=== PATIENT | female | born 1940 | race Caucasian/White ===

== ENCOUNTER 2017-09-15 06:35 | Inpatient (IN) | payer MEDICARE ==
[~2017-09-15] VITALS: Ht 162.6 cm; Wt 163.0 kg
[~2017-09-15 06:35] MED LIST: ALBU8.5H5 INH; ASCO100019 PO; ATEN50TA41 PO; BIOT25005 PO; CAPE500T24 PO; CHOL10002 PO; DOCU-180 PO; FURO40TA6 PO; LYSI500T PO; MONT10TA6 PO; MULT-224 PO; OMEG1CAP49 PO; POTA20TA91 PO; VIT1CAPS6 PO; Vitamin B6 PO; WARF5TAB7 PO; [UNRECOGNIZED DRUG - OTHER] PO
[2017-09-15] MEDS ORDERED: MORPHINE SULFATE 4 MG/ML, 1ML IVPush PRN (08:00)
[2017-09-15] MEDS ORDERED: ONDANSETRON 2MG/ML, 2ML IVPush ONE (08:00)
[2017-09-15] MEDS ORDERED: FAMOTIDINE 20 MG/2 ML IVPush ONE (08:00)
[2017-09-15] MEDS ORDERED: SODIUM CHLORIDE 0.9% 1,000ML IVBOLUS ONE (08:00)
[2017-09-15] MEDS ORDERED: SODIUM CHLORIDE FLUSH 10ML SYR IVF ONE (08:00)
[2017-09-15] MEDS ORDERED: FAMOTIDINE 20 MG/2 ML ONE (08:01)
[2017-09-15] MEDS ORDERED: MORPHINE SULFATE 4 MG/ML, 1ML ONE (08:01)
[2017-09-15] MEDS ORDERED: ONDANSETRON 2MG/ML, 2ML ONE (08:01)
[2017-09-15 08:08] LABS: BASOPHILS % (AUTO) 0 % (0-1); EOSINOPHILS # (AUTO) 0.02 x10^3/uL (0-0.4); EOSINOPHILS % (AUTO) 0 % (1-7); LYMPHOCYTES % (AUTO) 10 % (22-44); MD NO; MEAN CORPUSCULAR HEMOGLOBIN 32.1 pg (27.0-34.8); MEAN CORPUSCULAR VOLUME 94.4 fL (80-100); MEAN PLATELET VOLUME 7.8 fL (7.4-10.4); MONOCYTES # (AUTO) 0.59 x10^3/uL (0.2-0.8); MONOCYTES % (AUTO) 6 % (2-9); NEUTROPHILS # (AUTO) 8.15 x10^3/uL (1.8-6.8); NEUTROPHILS % (AUTO) 84 % (42-75); PLATELET COUNT 236 x10^3/uL (130-400); RED BLOOD COUNT 4.29 x10^6/uL (3.82-5.3); RED CELL DISTRIBUTION WIDTH 14.1 % (9.6-15.2)
[2017-09-15 08:16] LABS: INTERNATIONAL NORMALIZED RATIO 2.09 (0.93-1.1); PROTHROMBIN TIME 21.4 Seconds (9.6-11.5)
[2017-09-15 08:18] LABS: ALANINE AMINOTRANSFERASE 26 U/L (12-78); ALBUMIN 3.3 g/dL (3.4-5.0); ANION GAP 7 mmol/L (5-15); CALCIUM 9.2 mg/dL (8.5-10.1); CHLORIDE 102 mmol/L (98-107); CREATININE 1.13 mg/dL (0.55-1.02)
[2017-09-15 08:22] LABS: ALKALINE PHOSPHATASE 53 U/L (45-117); BILIRUBIN,TOTAL 1.7 mg/dL (0.2-1.0); TOTAL PROTEIN 8.5 g/dL (6.4-8.2); TROPONIN I < 0.015 ng/mL (0.000-0.045)
[2017-09-15 09:31] LABS: MICROSCOPIC AUTO
[2017-09-15 09:32] LABS: CULTURE INDICATED? YES
[2017-09-15] MEDS ORDERED: OMNIPAQUE 350 MG/ML, 100ML BOTTLE ONE (10:29)
[2017-09-15] MEDS ORDERED: CEFOTETAN PMX 1GM/50ML 50 ML IV ONE (11:00)
[2017-09-15] MEDS ORDERED: FURO20TA3 PO (11:30)
[2017-09-15] MEDS ORDERED: METO100T5 PO (11:30)
[2017-09-15] MEDS ORDERED: WARF6TAB PO (11:30)
[2017-09-15] MEDS ORDERED: CEFOTETAN PMX 1GM/50ML 50 ML ONE (12:14)
[2017-09-15] MEDS ORDERED: ACETAMINOPHEN 325 MG TABLET PO PRN (13:00)
[2017-09-15] MEDS ORDERED: POLYETHYLENE GLYCOL 17 GM PACKET PO PRN (13:00)
[2017-09-15] MEDS ORDERED: DOCUSATE 100 MG CAPSULE PO PRN (13:00)
[2017-09-15] MEDS: SENNA/DOCUSATE TABLET PO SCH (13:00)
[2017-09-15] MEDS ORDERED: OXYcodone IR 5MG TABLET PO PRN (13:00)
[2017-09-15] MEDS ORDERED: ALBUTEROL SULFATE 2.5 MG/3 ML NPPB PRN ×2 (13:00→13:09)
[2017-09-15] MEDS: NS + 20MEQ KCL 1,000 ML IV SCH (20:55)
[2017-09-15] MEDS: CIPROFLOXACIN/PMX 400MG/200ML 200 ML IV SCH (20:56)
[2017-09-15 21:10] VITALS: BP 172/75
[2017-09-15] MEDS: morphine SULFATE 10 MG/ML, 1ML IVPush PRN (21:10)
[2017-09-15 22:30] VITALS: BP 140/75
[2017-09-15] MEDS: METRONIDAZOLE PMX 500MG/100ML 100 ML IV SCH (22:32)
[2017-09-16 02:11] VITALS: BP 161/78
[2017-09-16 05:19] LABS: BASOPHILS # (AUTO) 0.02 x10^3/uL (0-0.1); BASOPHILS % (AUTO) 0 % (0-1); EOSINOPHILS # (AUTO) 0.01 x10^3/uL (0-0.4); EOSINOPHILS % (AUTO) 0 % (1-7); LYMPHOCYTES # (AUTO) 0.88 x10^3/uL (1-3.4); LYMPHOCYTES % (AUTO) 6 % (22-44); MD NO; MEAN CORPUSCULAR HEMOGLOBIN 32.4 pg (27.0-34.8); MEAN CORPUSCULAR HGB CONC 33.6 g/dL (32.4-35.8); MEAN CORPUSCULAR VOLUME 96.3 fL (80-100); MEAN PLATELET VOLUME 8.1 fL (7.4-10.4); MONOCYTES % (AUTO) 10 % (2-9); NEUTROPHILS # (AUTO) 12.88 x10^3/uL (1.8-6.8); NEUTROPHILS % (AUTO) 84 % (42-75); PLATELET COUNT 203 x10^3/uL (130-400); RED BLOOD COUNT 4.21 x10^6/uL (3.82-5.3); RED CELL DISTRIBUTION WIDTH 14.3 % (9.6-15.2)
[2017-09-16 05:34] LABS: CHLORIDE 105 mmol/L (98-107)
[2017-09-16 05:46] LABS: ALANINE AMINOTRANSFERASE 27 U/L (12-78); ALBUMIN 2.7 g/dL (3.4-5.0); ALKALINE PHOSPHATASE 49 U/L (45-117); ANION GAP 7 mmol/L (5-15); BILIRUBIN,TOTAL 1.8 mg/dL (0.2-1.0); CALCIUM 8.6 mg/dL (8.5-10.1); CREATININE 1.02 mg/dL (0.55-1.02); TOTAL PROTEIN 7.1 g/dL (6.4-8.2)
[2017-09-16] MEDS: METRONIDAZOLE PMX 500MG/100ML 100 ML IV SCH ×2 (06:13→14:47)
[2017-09-16 07:48] VITALS: BP 153/74
[2017-09-16] MEDS: morphine SULFATE 10 MG/ML, 1ML IVPush PRN (09:58)
[2017-09-16] MEDS: METOPROLOL SUCCINATE 100 MG TAB.ER.24H PO SCH (09:59)
[2017-09-16] MEDS: POTASSIUM CHLORIDE 20 MEQ TAB.ER.PRT PO SCH (10:00)
[2017-09-16] MEDS: SENNA/DOCUSATE TABLET PO SCH (10:00)
[2017-09-16] MEDS: FUROSEMIDE 20 MG TABLET PO SCH (10:00)
[2017-09-16] MEDS: MULTIVITAMIN 1 TABLET PO SCH (10:00)
[2017-09-16] MEDS: NS + 20MEQ KCL 1,000 ML IV SCH (10:31)
[2017-09-16] MEDS: CIPROFLOXACIN/PMX 400MG/200ML 200 ML IV SCH ×2 (10:31→22:49)
[2017-09-16 11:52] LABS: INTERNATIONAL NORMALIZED RATIO 2.43 (0.93-1.1); PROTHROMBIN TIME 24.8 Seconds (9.6-11.5)
[2017-09-16] MEDS ORDERED: PHYTONADIONE 10 MG/ML, 1ML IM ONE (14:00)
[2017-09-16 14:04] VITALS: BP 151/72
[2017-09-16 15:20] LABS: CLOSTRIDIUM DIFFICILE ANTIGEN NEGATIVE; CLOSTRIDIUM DIFFICILE TOXIN NEGATIVE (Negative)
[2017-09-16 20:15] VITALS: BP 135/79
[2017-09-17] MEDS: METRONIDAZOLE PMX 500MG/100ML 100 ML IV SCH ×3 (00:07→15:52)
[2017-09-17 03:00] VITALS: BP 134/76
[2017-09-17 06:00] LABS: BASOPHILS # (AUTO) 0.01 x10^3/uL (0-0.1); BASOPHILS % (AUTO) 0 % (0-1); EOSINOPHILS # (AUTO) 0.03 x10^3/uL (0-0.4); EOSINOPHILS % (AUTO) 0 % (1-7); LYMPHOCYTES # (AUTO) 0.89 x10^3/uL (1-3.4); LYMPHOCYTES % (AUTO) 7 % (22-44); MD NO; MEAN CORPUSCULAR HEMOGLOBIN 32.2 pg (27.0-34.8); MEAN CORPUSCULAR HGB CONC 33.7 g/dL (32.4-35.8); MEAN CORPUSCULAR VOLUME 95.5 fL (80-100); MONOCYTES # (AUTO) 1.16 x10^3/uL (0.2-0.8); MONOCYTES % (AUTO) 9 % (2-9); NEUTROPHILS # (AUTO) 10.65 x10^3/uL (1.8-6.8); NEUTROPHILS % (AUTO) 84 % (42-75); PLATELET COUNT 213 x10^3/uL (130-400); RED BLOOD COUNT 4.03 x10^6/uL (3.82-5.3); RED CELL DISTRIBUTION WIDTH 13.9 % (9.6-15.2)
[2017-09-17 06:57] LABS: INTERNATIONAL NORMALIZED RATIO 1.57 (0.93-1.1); PROTHROMBIN TIME 16.2 Seconds (9.6-11.5)
[2017-09-17 07:55] VITALS: BP 134/78
[2017-09-17] MEDS: SENNA/DOCUSATE TABLET PO SCH (08:04)
[2017-09-17] MEDS: POTASSIUM CHLORIDE 20 MEQ TAB.ER.PRT PO SCH (08:10)
[2017-09-17] MEDS: MULTIVITAMIN 1 TABLET PO SCH (08:11)
[2017-09-17] MEDS: METOPROLOL SUCCINATE 100 MG TAB.ER.24H PO SCH (08:11)
[2017-09-17] MEDS: FUROSEMIDE 20 MG TABLET PO SCH (08:11)
[2017-09-17] MEDS ORDERED: PHYTONADIONE 10 MG/ML, 1ML IM ONE (08:30)
[2017-09-17] MEDS: CIPROFLOXACIN/PMX 400MG/200ML 200 ML IV SCH ×2 (09:35→21:50)
[2017-09-17 13:01] VITALS: BP 150/80
[2017-09-17] MEDS: NS + 20MEQ KCL 1,000 ML IV SCH (14:37)
[2017-09-17] MEDS: ONDANSETRON 2MG/ML, 2ML IVPush PRN (17:18)
[2017-09-17 19:45] VITALS: BP 128/85
[2017-09-17] MEDS: morphine SULFATE 10 MG/ML, 1ML IVPush PRN (22:40)
[2017-09-18] MEDS: METRONIDAZOLE PMX 500MG/100ML 100 ML IV SCH ×3 (00:06→16:56)
[2017-09-18 03:36] VITALS: BP 119/68
[2017-09-18] MEDS: NS + 20MEQ KCL 1,000 ML IV SCH (03:38)
[2017-09-18 05:20] LABS: CHLORIDE 109 mmol/L (98-107)
[2017-09-18 05:29] LABS: ALANINE AMINOTRANSFERASE 24 U/L (12-78); ALBUMIN 2.1 g/dL (3.4-5.0); ALKALINE PHOSPHATASE 57 U/L (45-117); ANION GAP 8 mmol/L (5-15); BILIRUBIN,TOTAL 1.1 mg/dL (0.2-1.0); CALCIUM 8.2 mg/dL (8.5-10.1); CREATININE 0.91 mg/dL (0.55-1.02); TOTAL PROTEIN 6.6 g/dL (6.4-8.2)
[2017-09-18 05:36] LABS: INTERNATIONAL NORMALIZED RATIO 1.14 (0.93-1.1); PROTHROMBIN TIME 11.8 Seconds (9.6-11.5)
[2017-09-18 05:50] LABS: BASOPHILS # (AUTO) 0.04 x10^3/uL (0-0.1); BASOPHILS % (AUTO) 0 % (0-1); EOSINOPHILS # (AUTO) 0.12 x10^3/uL (0-0.4); EOSINOPHILS % (AUTO) 1 % (1-7); LYMPHOCYTES % (AUTO) 7 % (22-44); MD NO; MEAN CORPUSCULAR HGB CONC 33.4 g/dL (32.4-35.8); MEAN CORPUSCULAR VOLUME 95.9 fL (80-100); MONOCYTES # (AUTO) 0.93 x10^3/uL (0.2-0.8); MONOCYTES % (AUTO) 8 % (2-9); NEUTROPHILS # (AUTO) 10.15 x10^3/uL (1.8-6.8); NEUTROPHILS % (AUTO) 84 % (42-75); PLATELET COUNT 267 x10^3/uL (130-400); RED BLOOD COUNT 4.29 x10^6/uL (3.82-5.3); RED CELL DISTRIBUTION WIDTH 14.4 % (9.6-15.2)
[2017-09-18 07:47] VITALS: BP 124/67
[2017-09-18] MEDS: ONDANSETRON 2MG/ML, 2ML IVPush PRN (08:28)
[2017-09-18] MEDS: morphine SULFATE 10 MG/ML, 1ML IVPush PRN ×2 (08:28→12:51)
[2017-09-18] MEDS: METOPROLOL SUCCINATE 100 MG TAB.ER.24H PO SCH (08:28)
[2017-09-18] MEDS: POTASSIUM CHLORIDE 20 MEQ TAB.ER.PRT PO SCH (08:33)
[2017-09-18] MEDS: MULTIVITAMIN 1 TABLET PO SCH (08:34)
[2017-09-18] MEDS: FUROSEMIDE 20 MG TABLET PO SCH (08:34)
[2017-09-18] MEDS: SENNA/DOCUSATE TABLET PO SCH (08:34)
[2017-09-18] MEDS: CIPROFLOXACIN/PMX 400MG/200ML 200 ML IV SCH (12:52)
[2017-09-18 13:24] VITALS: BP 125/62
[2017-09-18] MEDS ORDERED: FENTANYL PF 250 MCG/5ML ONE (18:29)
[2017-09-18] MEDS ORDERED: BUPIVACAINE/PF 0.5% ONE (18:32)
[2017-09-18] MEDS ORDERED: EPINEPHRINE 1 MG/ML, 1ML ONE (18:32)
[2017-09-18] MEDS ORDERED: ONDANSETRON 2MG/ML, 2ML ONE (18:51)
[2017-09-18] MEDS ORDERED: PROPOFOL 10 MG/ML, 20ML ONE (18:51)
[2017-09-18] MEDS ORDERED: ROCURONIUM 10 MG/ML,10ML ONE (18:51)
[2017-09-18] MEDS ORDERED: DEXAMETHASONE 4 MG/ML, 1ML ONE (18:51)
[2017-09-18] MEDS ORDERED: LIDOCAINE-MPF 2% ,5ML ONE (18:51)
[2017-09-18] MEDS ORDERED: BUPIVACAINE/PF-EPI 0.5% 1:200K IM ONE (19:07)
[2017-09-18] MEDS ORDERED: SUGAMMADEX 200 MG/2 ML IVPush ONE (19:32)
[2017-09-18] MEDS ORDERED: HYDROmorphone 2 MG/ML, 1ML ONE (19:59)
[2017-09-18] MEDS ORDERED: ACETAMINOPHEN 325 MG TABLET PO PRN (20:00)
[2017-09-18] MEDS ORDERED: MIDAZOLAM 1 MG/ML, 2ML IV PRN (20:00)
[2017-09-18] MEDS ORDERED: FENTANYL PF 100 MCG/2ML IV PRN (20:00)
[2017-09-18] MEDS ORDERED: ALBUTEROL SULFATE 2.5 MG/3 ML NPPB PRN (20:00)
[2017-09-18] MEDS ORDERED: OXYcodone 5 MG/5 ML ORAL.SOL UDC PO PRN (20:00)
[2017-09-18] MEDS ORDERED: OXYcodone 5 MG/5 ML ORAL.SOL UDC ONE (20:00)
[2017-09-18] MEDS ORDERED: PROMETHAZINE 25 MG/ML, 1ML IV PRN (20:00)
[2017-09-18] MEDS: HYDROmorphone 1 MG/ML, 1ML IV PRN ×3 (20:02→20:22)
[2017-09-18 21:00] VITALS: BP 141/65
[2017-09-19] MEDS ORDERED: ALBUTEROL SULFATE 2.5 MG/3 ML NPPB PRN
[2017-09-19] MEDS: METRONIDAZOLE PMX 500MG/100ML 100 ML IV SCH ×3 (00:04→17:00)
[2017-09-19 01:05] VITALS: BP 135/61
[2017-09-19] MEDS: CIPROFLOXACIN/PMX 400MG/200ML 200 ML IV SCH ×2 (01:07→13:21)
[2017-09-19 05:33] LABS: BASOPHILS # (AUTO) 0.01 x10^3/uL (0-0.1); BASOPHILS % (AUTO) 0 % (0-1); EOSINOPHILS # (AUTO) 0.01 x10^3/uL (0-0.4); EOSINOPHILS % (AUTO) 0 % (1-7); LYMPHOCYTES # (AUTO) 0.57 x10^3/uL (1-3.4); LYMPHOCYTES % (AUTO) 6 % (22-44); MD NO; MEAN CORPUSCULAR HEMOGLOBIN 32.2 pg (27.0-34.8); MEAN CORPUSCULAR HGB CONC 33.6 g/dL (32.4-35.8); MEAN CORPUSCULAR VOLUME 95.8 fL (80-100); MEAN PLATELET VOLUME 7.8 fL (7.4-10.4); MONOCYTES # (AUTO) 0.51 x10^3/uL (0.2-0.8); MONOCYTES % (AUTO) 6 % (2-9); NEUTROPHILS # (AUTO) 8.18 x10^3/uL (1.8-6.8); NEUTROPHILS % (AUTO) 88 % (42-75); PLATELET COUNT 277 x10^3/uL (130-400); RED BLOOD COUNT 3.94 x10^6/uL (3.82-5.3); RED CELL DISTRIBUTION WIDTH 14.3 % (9.6-15.2)
[2017-09-19 05:35] LABS: ANION GAP 7 mmol/L (5-15); CALCIUM 8.5 mg/dL (8.5-10.1); CHLORIDE 109 mmol/L (98-107)
[2017-09-19 05:38] LABS: ALANINE AMINOTRANSFERASE 42 U/L (12-78); ALKALINE PHOSPHATASE 93 U/L (45-117); BILIRUBIN,TOTAL 0.8 mg/dL (0.2-1.0); CREATININE 0.99 mg/dL (0.55-1.02); TOTAL PROTEIN 6.5 g/dL (6.4-8.2)
[2017-09-19 07:42] VITALS: BP 131/69
[2017-09-19] MEDS: SENNA/DOCUSATE TABLET PO SCH (09:00)
[2017-09-19] MEDS: POTASSIUM CHLORIDE 20 MEQ TAB.ER.PRT PO SCH (09:08)
[2017-09-19] MEDS: MULTIVITAMIN 1 TABLET PO SCH (09:09)
[2017-09-19] MEDS: METOPROLOL SUCCINATE 100 MG TAB.ER.24H PO SCH (09:09)
[2017-09-19] MEDS: FUROSEMIDE 20 MG TABLET PO SCH (09:09)
[2017-09-19 13:30] VITALS: BP 145/82
[2017-09-19] MEDS ORDERED: METR500T PO (14:30)
[2017-09-19] MEDS ORDERED: CIPR500T3 PO (14:30)
[2017-09-19] MEDS ORDERED: WARFARIN 3 MG TABLET PO-COUM SCH (18:00)
[2017-09-19 20:20] VITALS: BP 168/86
[2017-09-20] MEDS: METRONIDAZOLE PMX 500MG/100ML 100 ML IV SCH ×2 (00:17→08:25)
[2017-09-20 00:28] VITALS: BP 131/72
[2017-09-20] MEDS: CIPROFLOXACIN/PMX 400MG/200ML 200 ML IV SCH (01:36)
[2017-09-20 08:12] VITALS: BP 152/80
[2017-09-20] MEDS: FUROSEMIDE 20 MG TABLET PO SCH (08:24)
[2017-09-20] MEDS: POTASSIUM CHLORIDE 20 MEQ TAB.ER.PRT PO SCH (08:24)
[2017-09-20] MEDS: MULTIVITAMIN 1 TABLET PO SCH (08:24)
[2017-09-20] MEDS: METOPROLOL SUCCINATE 100 MG TAB.ER.24H PO SCH (08:25)
[2017-09-20] MEDS: SENNA/DOCUSATE TABLET PO SCH (08:27)
== END 2017-09-20 12:08 | disposition home health service (06) | DRG 417 ==
LOC: ED 11:27 → EDIP 11:35 → SUATTDRO 11:42 → 3NE 12:57
PROVIDERS: ADMIT Internal Medicine; ATTEND Family Medicine
PROC: 0T9B70Z Drainage of Bladder with Drainage Device, Via Natural or Artificial Opening (ICD-10-PCS; 2017-09-15)
PROC: 5A09357 Assistance with Respiratory Ventilation, Less than 24 Consecutive Hours, Continuous Positive Airway Pressure (ICD-10-PCS; 2017-09-15)
PROC: 5A09357 Assistance with Respiratory Ventilation, Less than 24 Consecutive Hours, Continuous Positive Airway Pressure (ICD-10-PCS; 2017-09-17)
PROC: 0FT44ZZ Resection of Gallbladder, Percutaneous Endoscopic Approach (ICD-10-PCS; principal; 2017-09-18 18:30)
PROC: 5A09357 Assistance with Respiratory Ventilation, Less than 24 Consecutive Hours, Continuous Positive Airway Pressure (ICD-10-PCS; 2017-09-19)
PROC: 5A09357 Assistance with Respiratory Ventilation, Less than 24 Consecutive Hours, Continuous Positive Airway Pressure (ICD-10-PCS; 2017-09-20)
DX: K80.00 Calculus of gallbladder with acute cholecystitis without obstruction (principal); K82.2 Perforation of gallbladder; I96 Gangrene, not elsewhere classified; D68.69 Other thrombophilia; R06.00 Dyspnea, unspecified; E66.01 Morbid (severe) obesity due to excess calories; Z68.44 Body mass index [BMI] 60.0-69.9, adult; Z79.01 Long term (current) use of anticoagulants; I10 Essential (primary) hypertension; Z66 Do not resuscitate; Z85.038 Personal history of other malignant neoplasm of large intestine; Z86.711 Personal history of pulmonary embolism; Z90.710 Acquired absence of both cervix and uterus; Z88.8 Allergy status to other drugs, medicaments and biological substances; Z79.899 Other long term (current) drug therapy
CPT/HCPCS: 36415; 74022; 74177; 78227; 80053; 81001; 83605; 83690; 83735; 84484; 85025; 85610; 85730; 87086; 87324; 88304; 93005; 96361; 96374; 96375; J0171; J0744; J1100; J1170; J2405; J2704; J3010; J3430; J3480; J3490; Q9967; A9537; C9898; J2270; J7030; S0028; S0074

== ENCOUNTER 2019-11-26 09:31 | Outpatient (CLI) | payer MEDICARE ==
[~2019-11-26] VITALS: Ht 162.6 cm; Wt 159.0 kg
[~2019-11-26 09:31] MED LIST changes: +CIPR500T3 PO; +FURO20TA3 PO; -LYSI500T PO; +LYSI500T8 PO; +METO100T5 PO; +METR500T PO; -MULT-224 PO; +MULT-642 PO; +WARF-36 PO; -WARF5TAB7 PO; +WARF6TAB PO
[2019-11-26 10:41] LABS: BASOPHILS # (AUTO) 0.02 x10^3/uL (0-0.1); BASOPHILS % (AUTO) 1 % (0-1); EOSINOPHILS # (AUTO) 0.26 x10^3/uL (0-0.4); EOSINOPHILS % (AUTO) 7 % (1-7); LYMPHOCYTES # (AUTO) 1.41 x10^3/uL (1-3.4); LYMPHOCYTES % (AUTO) 35 % (22-44); MD NO; MEAN CORPUSCULAR HEMOGLOBIN 32.3 pg (27.0-34.8); MEAN CORPUSCULAR HGB CONC 33.7 g/dL (32.4-35.8); MEAN CORPUSCULAR VOLUME 95.8 fL (80-100); MEAN PLATELET VOLUME 7.9 fL (7.4-10.4); MONOCYTES # (AUTO) 0.31 x10^3/uL (0.2-0.8); MONOCYTES % (AUTO) 8 % (2-9); NEUTROPHILS % (AUTO) 50 % (42-75); PLATELET COUNT 221 x10^3/uL (130-400); RED BLOOD COUNT 4.31 x10^6/uL (3.82-5.3); RED CELL DISTRIBUTION WIDTH 13.8 % (9.6-15.2)
[2019-11-26 10:52] LABS: ALBUMIN 3.5 g/dL (3.4-5.0); ANION GAP 5 mmol/L (5-15); CALCIUM 9.1 mg/dL (8.5-10.1); CHLORIDE 112 mmol/L (98-107); CREATININE 1.12 mg/dL (0.55-1.02); PROTHROMBIN TIME 21.3 Seconds (9.6-11.5)
[2019-11-26 10:55] LABS: ALANINE AMINOTRANSFERASE 33 U/L (12-78); ALKALINE PHOSPHATASE 52 U/L (45-117); BILIRUBIN,TOTAL 0.9 mg/dL (0.2-1.0); TOTAL PROTEIN 8.3 g/dL (6.4-8.2)
[2019-11-26] MEDS ORDERED: WARF-36 PO (11:43)
[2019-11-26] MEDS ORDERED: DOCU100T6 PO (15:37)
[2019-11-26] MEDS ORDERED: LYSI500T8 PO (15:37)
[2019-11-26] MEDS ORDERED: [UNRECOGNIZED DRUG - OTHER] (15:37)
[2019-11-26] MEDS ORDERED: SENNA (15:37)
[2019-11-26] MEDS ORDERED: NYST15CR33 TP (15:37)
[2019-11-26] MEDS ORDERED: NYST15PO9 TP (15:37)
[2019-11-26] MEDS ORDERED: VITAMIN B6 PO (15:37)
[2019-11-26] MEDS ORDERED: [UNRECOGNIZED DRUG - OTHER] (15:37)
[2019-11-26] MEDS ORDERED: CINN500C2 PO (15:37)
[2019-11-26] MEDS ORDERED: LACT1CAP35 PO (15:37)
[2019-11-26] MEDS ORDERED: [UNRECOGNIZED DRUG - OTHER] (15:37)
== END 2019-11-26 23:59 | disposition home or self-care (01) ==
LOC: STAR 09:31
PROVIDERS: ATTEND Internal Medicine Gastroenterology
DX: Z01.818 Encounter for other preprocedural examination (principal); R19.4 Change in bowel habit; E66.01 Morbid (severe) obesity due to excess calories; G47.30 Sleep apnea, unspecified; Z85.038 Personal history of other malignant neoplasm of large intestine; Z86.010 Personal history of colon polyps
CPT/HCPCS: 36415; 80053; 85025; 85610; 85730; 93005